=== PATIENT | male | born 1950 | race Caucasian/White ===

== ENCOUNTER 2017-01-05 11:30 | Emergency (ER) | payer MEDICARE, OTHER ==
[2017-01-05 11:57] VITALS: TEMP 97.8
--- NOTE | 2017-01-05 12:18 | ED.PDOC ---
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 He stated ate breakfast at [employer] before started his work. Timing/Duration: 1 hour Improving Factors: nothing Worsening Factors: nothing Associated Symptoms: denies symptoms Allergies/Adverse Reactions: Allergies NO KNOWN ALLERGY Allergy (Verified 01/05/17 12:07) Review of Systems - Review of Systems Constitutional: States: no symptoms reported EENTM: States: no symptoms reported Respiratory: States: no symptoms reported Cardiology: States: no symptoms reported Gastrointestinal/Abdominal: States: no symptoms reported Genitourinary: States: no symptoms reported Musculoskeletal: States: no symptoms reported Skin: States: no symptoms reported Neurological: States: see HPI, other - dizziness Endocrine: States: no symptoms reported Hematologic/Lymphatic: States: no symptoms reported Past Medical History (General) - Patient Medical History Hx Seizures: No Hx Stroke: No Hx Asthma: No Hx Cardiac Disorders: No Hx Hypertension: No Surgical History: other Family Medical History - Family History Mother Family History: No Known Physical Exam - Physical Exam General Appearance: Alert, No apparent distress Eye Exam: right other - legally blind right eye injury 10 y/o, left normal Ears, Nose, Throat: hearing grossly normal, normal ENT inspection, normal pharynx Neck: non-tender, full range of motion, supple, normal inspection Respiratory: chest non-tender, lungs clear, normal breath sounds, no respiratory distress, no accessory muscle use Cardiovascular/Chest: normal peripheral pulses, regular rate, rhythm, no edema, no gallop, no JVD, diastolic murmur - grade 2/5 Peripheral Pulses: radial,right: 2+, radial,left: 2+ Gastrointestinal/Abdominal: normal bowel sounds, non tender, soft, no organomegaly, no pulsatile mass Back Exam: normal inspection, no CVA tenderness, no vertebral tenderness Extremity: normal range of motion, non-tender Neurologic: no motor/sensory deficits, alert, normal mood/affect, oriented x 3, other - pronator drift negative,romberg negative Skin Exam: rash - forehead-psoriatic or chronic dermatitis Progress - Results/Orders Results/Orders: 01/05/17 12:15 EKG STAT Laboratory Results WBC 7.5 K/mm3 (4.8-10.8) 01/05/17 12:43 RBC 5.01 M/mm3 (4.70-6.10) 01/05/17 12:43 Hgb 14.7 gm/dL (14.0-18.0) 01/05/17 12:43 Hct 43.9 % (42.0-52.0) 01/05/17 12:43 MCV 87.5 fl (80.0-94.0) 01/05/17 12:43 MCH 29.3 pg (27.0-31.0) 01/05/17 12:43 MCHC 33.4 g/dL (33.0-37.0) 01/05/17 12:43 RDW 13.8 % (11.5-14.5) 01/05/17 12:43 Plt Count 229 K/mm3 (130-400) 01/05/17 12:43 MPV 8.3 fl (7.40-10.4) 01/05/17 12:43 Absolute Neuts (auto) 5.60 K/uL (1.8-6.8) 01/05/17 12:43 Absolute Lymphs (auto) 1.20 K/uL (1.0-3.4) 01/05/17 12:43 Absolute Monos (auto) 0.60 K/uL (0.2-0.8) 01/05/17 12:43 Absolute Eos (auto) 0.10 K/uL (0.0-0.4) 01/05/17 12:43 Absolute Basos (auto) 0.00 K/uL (0.0-0.1) 01/05/17 12:43 Neutrophils % 74.6 % (42.0-78.0) 01/05/17 12:43 Lymphocytes % 15.7 % (20.0-50.0) L 01/05/17 12:43 Monocytes % 8.5 % (2.0-9.0) 01/05/17 12:43 Eosinophils % 0.7 % (1.0-5.0) L 01/05/17 12:43 Basophils % 0.5 % (0.0-2.0) 01/05/17 12:43 PT 12.4 SECONDS (9.4-12.5) 01/05/17 12:43 INR 1.100 01/05/17 12:43 PTT (SP) 33.7 SECONDS (25.1-36.5) 01/05/17 12:43 D-Dimer, Quantitative < 230 ng/mL (0-230) 01/05/17 12:43 Sodium 142 mmol/L (135-145) 01/05/17 12:43 Potassium 4.2 mmol/L (3.6-5.0) 01/05/17 12:43 Chloride 107 mmol/L (101-111) 01/05/17 12:43 Carbon Dioxide 28 mmol/L (21-31) 01/05/17 12:43 Anion Gap 11.2 (12-18) L 01/05/17 12:43 BUN 14 mg/dL (7-18) 01/05/17 12:43 Creatinine 0.69 mg/dL (0.6-1.3) 01/05/17 12:43 BUN/Creatinine Ratio 20.3 (10-20) H 01/05/17 12:43 Random Glucose 110 mg/dL (70-105) H 01/05/17 12:43 Serum Osmolality 284.2 mOsm/L (275-295) 01/05/17 12:43 Calcium 9.2 mg/dL (8.4-10.2) 01/05/17 12:43 Total Bilirubin 0.3 mg/dL (0.2-1.0) 01/05/17 12:43 AST 21 IU/L (10-42) 01/05/17 12:43 ALT 9 IU/L (10-60) L 01/05/17 12:43 Alkaline Phosphatase 52 IU/L (42-121) 01/05/17 12:43 Creatine Kinase 59 IU/L (38-174) 01/05/17 12:43 CK-MB (CK-2) 2.1 ng/mL (0.0-4.4) 01/05/17 12:43 CK-MB (CK-2) % Not Reportable 01/05/17 12:43 Troponin I < 0.02 ng/mL (0.01-0.05) 01/05/17 12:43 Serum Total Protein 7.5 gm/dL (6.4-8.2) 01/05/17 12:43 Albumin 4.5 g/dl (3.2-5.5) 01/05/17 12:43 Globulin 3.0 gm/dL (2.3-3.5) 01/05/17 12:43 Albumin/Globulin Ratio 1.5 (1.1-1.9) 01/05/17 12:43 - EKG/XRAY/CT EKG: [place], Sinus Comments: Heart rate-62 XRAY: chest - no acute abnormality noted CT: head-no infarct or hemorrhage Departure - Departure Clinical Impression: Dizziness, nonspecific Time of Disposition: 14:18 Disposition: Discharge to Home or Self Care Condition: Good Departure Forms: ED Discharge - Pt. Copy, Patient Portal Self Enrollment Instructions: DI for Dizziness-Nonvertigo Referrals: GRISELDA SANTOS IV [employer] DEVELOPER [Primary Care Provider] - 1-2 Weeks Additional Instructions: RETURN TO EMERGENCY ROOM NEEDED;FOLLOW UP WITH PRIMARY MD 01/07/2017 patient to make appointment
--- NOTE | 2017-01-05 13:05 | CT ---
EXAM DESCRIPTION: Head CLINICAL HISTORY: dizziness COMPARISON: None Available. TECHNIQUE: Contiguous axial images of the brain were obtained without the administration of intravenous contrast. FINDINGS: There is no acute intracranial hemorrhage or mass effect. Ventricular system is within normal limits. There is atherosclerosis. There is mild generalized atrophy. There is adequate comer-white matter differentiation. There is no skull fracture. Lobular opacity within the anterior aspect of the left maxillary sinus may represent a mucoid retention cyst. IMPRESSION: No acute intracranial abnormalities. Electronically signed by: Jamie Burgess MD 01/05/2017 1:03 PM CDT
--- NOTE | 2017-01-05 13:06 | RAD ---
EXAM DESCRIPTION: Chest,1 View CLINICAL HISTORY: sob COMPARISON: None FINDINGS: Cardiac silhouette is within normal limits. EKG leads project over the chest. There is no focal parenchymal or pleural disease. There is no acute osseous process visualized. IMPRESSION: No evidence of acute cardiopulmonary disease. Electronically signed by: Jamie Burgess MD 01/05/2017 1:04 PM CDT
[2017-01-05 14:36] VITALS: BP 146/77; O2SAT 99
== END 2017-01-05 14:36 | disposition home or self-care (01) ==
LOC: ER 11:30
DX: R42 Dizziness and giddiness (principal)

== ENCOUNTER → 2018-01-23 | Outpatient (CLI) | payer MEDICARE, OTHER ==
--- NOTE | 2018-01-24 10:39 | MRI ---
EXAM DESCRIPTION: MRI left knee CLINICAL HISTORY: Left knee pain and swelling COMPARISON: None. TECHNIQUE: Multiplanar, multisequence MR images of the left knee FINDINGS: Osteonecrosis weightbearing medial femoral condyle spanning 3 cm anteroposterior by 1.9 cm transverse. Crescentic osteonecrotic segment the depth of which is about 0.7 cm. Mild subchondral cortical flattening. Diffuse marrow edema throughout the medial femoral condyle. There are a couple of cystic areas along the peripheral margin of the osteonecrotic segment. Complex tear of the posterior horn and body medial meniscus with oblique tear extending to the inferior articular surface along the posterior horn. Complex tear, near complete transection along the mid body with subluxation of the torn meniscus into the superior medial gutter. Linear oblique tear posterior horn lateral meniscus extending over a small region of the inferior articular surface/free edge at the posterior horn/body junction. No high-grade lateral femorotibial chondrosis or chronic osteochondral lesion. No high-grade patellofemoral chondrosis or chronic osteochondral lesion ACL, PCL, MCL and fibular collateral ligaments are intact Biceps femoris, popliteus and iliotibial band tendons are normal Patellar and quadriceps tendons and tendons of the posterior medial knee are intact Large joint effusion with degenerative synovitis. Moderate-sized Emery's cyst measuring up to 6.2 cm in length and 2 cm transverse IMPRESSION: Complex tear posterior horn and body medial meniscus with subluxation into the superior medial gutter Large area of osteonecrosis weightbearing medial femoral condyle Lateral meniscal tear with a small focal inferior articular surface/free edge extension at the posterior horn/body junction Electronically signed by: Oj Hope MD 01/24/2018 10:38 AM CDT
== END ==
LOC: MRI 09:36
PROVIDERS: ATTEND Nurse Practitioner Family
DX: S83.242A Other tear of medial meniscus, current injury, left knee, initial encounter (principal); S83.282A Other tear of lateral meniscus, current injury, left knee, initial encounter; M87.852 Other osteonecrosis, left femur

== ENCOUNTER → 2018-01-31 | Outpatient (CLI) | payer MEDICARE, OTHER ==
--- NOTE | 2018-02-01 13:31 | RAD ---
EXAM DESCRIPTION: Knee,Left Complete CLINICAL HISTORY: 67 years, Male, PAIN COMPARISON: None TECHNIQUE: Four views of the left knee including standing views FINDINGS: No fracture or dislocation. Bones appear normally mineralized with normal trabecular pattern. Narrowed appearance of medial more than lateral compartments on frontal view. Abnormal flattening of the weightbearing surface of the medial femoral condyle with subchondral sclerosis is consistent with old injury or chronic remodeling due to overlying cartilage loss. Lateral view shows normal position of the patella. Spurring at the tibial spines is seen. Mild posterior patellar spurring. No patellar spurring or enthesopathy. Minimal suprapatellar knee joint effusion is suspected. Normal contour of quadriceps and patellar tendons. No abnormal patellar tilt or subluxation on patellar sunrise view. Mild posterior medial and posterolateral patellar spurring is present. IMPRESSION: Degenerative changes as described. Electronically signed by: Arturo Webb MD 02/01/2018 1:30 PM CDT
--- NOTE | 2018-02-01 13:34 | RAD ---
EXAM DESCRIPTION: Pelvis CLINICAL HISTORY: 67 years Male, HIP PAIN COMPARISON: None. TECHNIQUE: Single AP x-ray view of pelvis and hips FINDINGS: Bridging callus or spur at the pubic symphysis is noted consistent with old healed injury. Deformity of the inferior pubic ramus on the right is noted. Mild narrowing of the medial hip joint space on the right. Mild spurring of the lateral acetabular margins bilaterally. Degenerative changes are seen in the lower L-spine. Sacrum and SI joints appear intact. No acute fracture of the proximal femurs or bones of the pelvis. IMPRESSION: Degenerative changes in the lower lumbar spine and hips. Chronic posttraumatic deformities of the pubis. Electronically signed by: Arturo Webb MD 02/01/2018 1:32 PM CDT
== END ==
LOC: RAD 09:06
PROVIDERS: ATTEND Orthopaedic Surgery
DX: M25.562 Pain in left knee (principal); M25.552 Pain in left hip; M95.5 Acquired deformity of pelvis

== ENCOUNTER → 2019-09-22 | Outpatient (CLI) | payer MEDICARE, OTHER ==
--- NOTE | 2019-09-23 10:32 | US ---
EXAM DESCRIPTION: Carotid Duplex: ULTRASOUND. CLINICAL HISTORY: 69 years Male OCCLUSION AND STENOSIS OF RIGHT CAROTID ARTERY COMPARISON: CT scan of the head December 2016. TECHNIQUE: Transcutaneous scanning utilizing comer-scale and Doppler modes to evaluate the bilateral carotid systems and vertebral arteries. Percentage of diameter of stenosis or no stenosis recorded will be based upon NASCET criteria. FINDINGS: Peak systolic/end diastolic (CM-Sec) CCA Right 75/14 Left 102/26. ICA Right proximal 225/68, mid 236/43. Left proximal 75/19, mid 81/20. Vertebral Right 55/16 Left 32/5. ECA (PS Only) Right 87/9 left 106. ICA/CCA peak systolic ratio: Right 3.2 Left 0.8 ICA/CCA end diastolic ratio: Right 3.0 Left 0.8 Vertebral arteries: antegrade flow. Comments: Multiple calcified atherosclerotic plaques bilateral common carotid arteries, common carotid bifurcations, and proximal ICAs. Spectral broadening in the right ICA distal right ICA mid right common carotid bulb: Area stenosis 31% and diameter stenosis 40%. Right distal CCA bulb: Area stenosis 25% and diameter stenosis 19%. Proximal right ICA: Area stenosis 92% and diameter stenosis 82%. Diameter stenosis and area stenosis of the left common carotid bulbs less than 25%. Diameter stenosis in the area stenosis of the left proximal ICA less than 40%. IMPRESSION: 1. Doppler evaluation of the bilateral carotid systems and vertebral arteries shows hemodynamically significant stenosis in the right proximal ICA with area stenosis 92% and diameter stenosis 82%. Patient had risk for distal infarction. Area and diameter stenosis in the proximal left ICA 2. Significant plaque seen in the carotid arteries bilaterally, especially right common carotid bifurcation and proximal right ICA. Bilateral vertebral arteries showed antegrade-cephalad flow. Electronically signed by: Chris Brandt MD 09/23/2019 10:31 AM [facility]
== END ==
LOC: US 13:33
PROVIDERS: ATTEND Nurse Practitioner Family
DX: I65.23 Occlusion and stenosis of bilateral carotid arteries (principal)

== ENCOUNTER → 2019-11-30 | Outpatient (CLI) | payer MEDICARE, OTHER | LOC: LAB.O 07:30 | PROVIDERS: ATTEND Internal Medicine Cardiovascular Disease | DX: I65.29 Occlusion and stenosis of unspecified carotid artery (principal) ==

== ENCOUNTER 2020-08-21 10:09 | Emergency (ER) | payer MEDICARE, OTHER ==
[2020-08-21] MEDS ORDERED: ASPIRIN TABLET 325 MG TAB PO ONE (10:17)
[2020-08-21] MEDS ORDERED: NITROGLYCERIN 0.4 MG 25 EA TAB SL ONE (10:17)
[2020-08-21] MEDS ORDERED: SODIUM CHLORIDE 0.9% (FLUSH) 10 ML SYG IV PRN (10:17)
[2020-08-21 10:21] VITALS: TEMP 98
--- NOTE | 2020-08-21 10:41 | RAD ---
EXAM: X-RAY, Chest (1 View) HISTORY: chest pain. COMPARISON: Chest x-ray from 01/05/2017. TECHNIQUE: AP view of the chest. FINDINGS: Lungs: The lungs are clear. Pleural space: No pneumothorax or pleural effusion is present. Heart: The heart is normal in size. Bones: No acute bone abnormality. IMPRESSION: No acute cardiopulmonary finding. Electronically signed by: Mahamed Lawrence MD 08/21/2020 10:40 AM [facility]
--- NOTE | 2020-08-21 11:04 | ED.PDOC ---
History of Present Illness - General Chief Complaint: Chest Pain/TX Stated Complaint: chest pain Time Seen by Provider: 08/21/20 10:17 Source: patient, RN notes reviewed, Vital Signs reviewed, family - family Exam Limitations: no limitations - History of Present Illness Initial Comments: Patient is a 70-year-old white male who presents with complaints of chest pain. This pain started last night. The pain is intermittent and lasts for hours at a time. Patient has had similar pain off and on for the last couple of years. Nothing seems to bring the pain on or make it better. The pain is sharp in nature. It is on the left side of his chest. Patient denies any headaches, dizziness, blurry vision, nausea, vomiting, diarrhea. He denies any shortness of breath. Timing/Duration: 7-24 hours Severity/Quality: moderate, sharp, stabbing Chest Pain Radiation: no radiation Activities at Onset: none Prior Chest Pain/Cardiac Workup: no prior cardiac workup Improving Factors: nothing Worsening Factors: nothing Nitro Today/Relief: no nitro taken today Aspirin Treatment Today: no aspirin today Associated Symptoms: denies symptoms Allergies/Adverse Reactions: Allergies NO KNOWN ALLERGY Allergy (Verified 08/21/20 10:21) Home Medications: Ambulatory Orders Clopidogrel Bisulfate [Plavix] 75 mg PO DAILY 08/21/20 Simvastatin 10 mg PO DAILY 08/21/20 Review of Systems - Review of Systems Constitutional: States: no symptoms reported, see HPI. Denies: chills, fever, malaise, weakness EENTM: States: no symptoms reported. Denies: eye pain, blurred vision, double vision Respiratory: States: no symptoms reported. Denies: cough, short of breath, stridor, wheezing Cardiology: States: see HPI, chest pain. Denies: palpitations, syncope Gastrointestinal/Abdominal: States: no symptoms reported. Denies: abdominal pain, nausea, vomiting Genitourinary: States: no symptoms reported. Denies: dysuria, frequency Musculoskeletal: States: no symptoms reported. Denies: back pain, joint pain, neck pain Skin: States: no symptoms reported. Denies: change in color, rash Neurological: States: no symptoms reported. Denies: headache, tingling, tremors, weakness Endocrine: States: no symptoms reported. Denies: increased hunger, increased thirst, increased urine Hematologic/Lymphatic: States: no symptoms reported. Denies: blood clots, easy bleeding All other Systems: No Change from Baseline Past Medical History (General) - Patient Medical History Hx Seizures: No Hx Stroke: No Hx Asthma: No Hx Cardiac Disorders: No Hx Congestive Heart Failure: No Hx Hypertension: No Hx Diabetes: No Hx Cancer: Yes Hx Hepatitis C: No - Vaccination History Hx Tetanus, Diphtheria Vaccination: No Hx Influenza Vaccination: No Hx Pneumococcal Vaccination: No Immunizations Up to Date: No - Social History Hx Tobacco Use: No Hx Alcohol Use: No Hx Substance Use: No Hx Substance Use Treatment: No Hx Depression: No Family Medical History - Family History Mother Family History: No Known Physical Exam - Physical Exam General Appearance: Alert, Anxious, Unkempt, Well Developed, Well Hydrated, Well Nourished Eyes, Ears, Nose, Throat Exam: PERRL/EOMI, normal ENT inspection, pharynx normal Neck: non-tender, full range of motion, supple Respiratory: chest non-tender, lungs clear, normal breath sounds, no respiratory distress, no accessory muscle use Cardiovascular/Chest: normal peripheral pulses, regular rate, rhythm, no edema, no gallop, no JVD, systolic murmur - 2/6 Peripheral Pulses: radial,right: 2+, radial,left: 2+ Gastrointestinal/Abdominal: normal bowel sounds, non tender, soft Extremity: normal range of motion, non-tender, normal inspection Neurologic: pumpman II-XII nml as tested, no motor/sensory deficits, alert, normal mood/affect, oriented x 3 Skin Exam: normal color, warm/dry Lymphatic: no adenopathy Progress - Progress Progress: Differential diagnosis: Acute TX, pneumonia, pneumothorax, PE among others. 08/21/20 11:50 Patient's lab work is unremarkable. So is the chest x-ray. EKG is abnormal but there is no acute ischemia. D-dimer is negative so PE unlikely. Will discuss plan of care with the patient and his and make a decision on his disposition. I will repeat a troponin at the 2-hour jennifer. 08/21/20 14:22 Repeat troponin is negative. Plan on discharge home at this time. Patient's chest pain has resolved and has not recurred while here. I have discussed this plan of care with the patient and his and they voiced understanding and agreement with plan of care. Earl Patel M.D. #[id number] - Results/Orders Results/Orders: EXAM: X-RAY, Chest (1 View) HISTORY: chest pain. COMPARISON: Chest x-ray from 01/05/2017. TECHNIQUE: AP view of the chest. FINDINGS: Lungs: The lungs are clear. Pleural space: No pneumothorax or pleural effusion is present. Heart: The heart is normal in size. Bones: No acute bone abnormality. IMPRESSION: No acute cardiopulmonary finding. Electronically signed by: Mahamed Lawrence MD 08/21/2020 10:40 AM EKG performed 21 August 2020 at 1009 hrs.: Sinus rhythm with marked sinus arrhythmia at 77 bpm, poor R wave progression of the anterior leads concerning for old infarct, abnormal EKG, no comparison EKG available at this time. 08/21/20 10:17 IV Care:Saline Lock per Protoc QSHIFT Telemetry .ONCE Sodium Chloride 0.9% (Flush) [Saline Flush Syringe] 10 ml IV PRN PRN EKG Stat Pulse Ox Stat Laboratory Results - last 24 hr 08/21/20 08/21/20 10:20 10:20 WBC 4.6 L RBC 5.00 Hgb 15.2 Hct 44.2 MCV 88.5 MCH 30.3 MCHC 34.3 RDW 14.1 Plt Count 241 MPV 7.8 Absolute Neuts (auto) 3.60 Absolute Lymphs (auto) 0.60 L Absolute Monos (auto) 0.40 Absolute Eos (auto) 0.00 Absolute Basos (auto) 0.00 Neutrophils % 77.0 Lymphocytes % 12.5 L Monocytes % 9.3 H Eosinophils % 0.9 L Basophils % 0.3 PT 11.0 H INR 1.11 PTT (SP) 25.4 D-Dimer, Quantitative 214.0 Sodium 142 Potassium 3.5 L Chloride 105 Carbon Dioxide 25 Anion Gap 15.5 BUN 13 Creatinine 0.89 BUN/Creatinine Ratio 14.6 Random Glucose 157 H Serum Osmolality 286.5 Calcium 8.9 Magnesium 2.1 Total Bilirubin 0.7 Direct Bilirubin 0.1 Indirect Bilirubin 0.6 AST 24 ALT 8 L Alkaline Phosphatase 40 L Creatine Kinase 77 CK-MB (CK-2) 2.1 CK-MB (CK-2) % Not Reportable Troponin I < 0.02 B-Natriuretic Peptide 48.9 Serum Total Protein 7.6 Albumin 4.5 Vital Signs 08/21/20 08/21/20 08/21/20 10:16 10:22 10:23 Temperature 98.0 F Pulse Rate [ 75 76 monitor] Respiratory 18 Rate Blood Pressure 156/85 [Right Arm] O2 Sat by Pulse 97 98 Oximetry Repeat troponin less than 0.02 - EKG/XRAY/CT CT Ordered: No CT Interpretation Call Back: No Departure - Departure Clinical Impression: Chest pain Qualifiers: Chest pain type: unspecified Qualified Code(s): R07.9 - Chest pain, unspecified Time of Disposition: 14:23 Disposition: Discharge to Home or Self Care Condition: Good Departure Forms: ED Discharge - Pt. Copy, Patient Portal Self Enrollment Instructions: DI for Chest Pain, Chest Pain (DC) Diet: resume usual diet Activity: increase activity as tolerated Referrals: GRISELDA SANTOS IV, [employer]AL[employer] ENGINEER [Primary Care Provider] - 1-2 Days Home Medications: Ambulatory Orders Clopidogrel Bisulfate [Plavix] 75 mg PO DAILY 08/21/20 Simvastatin 10 mg PO DAILY 08/21/20
[2020-08-21 14:39] VITALS: BP 128/65; O2SAT 97
== END 2020-08-21 14:39 | disposition home or self-care (01) ==
LOC: ER 10:09
DX: R07.9 Chest pain, unspecified (principal); Z79.02 Long term (current) use of antithrombotics/antiplatelets; Z85.9 Personal history of malignant neoplasm, unspecified